=== PATIENT | male | born 1990 | race Caucasian/White ===

== ENCOUNTER 2018-10-01 16:48 | Inpatient (IN) | payer MEDICAID, OTHER ==
--- NOTE | 2018-10-01 17:30 | EDPHY ---
H & P Stated Complaint: SI Time Seen by Provider: 10/01/18 17:14 HPI/ROS: CHIEF COMPLAINT: Suicidal ideation HISTORY OF PRESENT ILLNESS: 27-year-old male with depression presents with suicidal ideation. Long history of depression, originally diagnosed as a teenager. Has never been treated for depression. Increasing thoughts of suicide, especially today. He was afraid to get in a car because he thought he might try to kill himself. He recently moved from the [place] to [place]. History of polysubstance abuse, last used oxycodone yesterday. No recent illness or injury. REVIEW OF SYSTEMS: complete 10 point ROS reviewed and is negative except for the noted elements in the HPI - Personal History Current Tetanus/Diphtheria Vaccine: Yes - Medical/Surgical History Hx Asthma: No Hx Chronic Respiratory Disease: No Hx Diabetes: No Hx Cardiac Disease: No Hx Renal Disease: No Hx Cirrhosis: No Hx Alcoholism: No Other PMH: Denies - Social History Smoking Status: Heavy smoker Alcohol Use: Occasionally - Physical Exam Exam: General Appearance: Alert, pleasant Eyes: Pupils equal and round, no conjunctival pallor ENT, Mouth: Mucous membranes moist Neck: Normal inspection Respiratory: Lungs are clear to auscultation Cardiovascular: Regular rate and rhythm Gastrointestinal: Abdomen is soft and nontender Neurological: A&O, nonfocal, normal gait Skin: Warm and dry, no rash Extremities: Normal inspection Psychiatric: Flat affect Constitutional: Initial Vital Signs Temperature (C) 36.8 C 10/01/18 16:50 Heart Rate 78 10/01/18 16:50 Respiratory Rate 18 10/01/18 16:50 Blood Pressure 151/94 H 10/01/18 16:50 O2 Sat (%) 97 10/01/18 16:50 O2 Delivery Mode Room Air Allergies/Adverse Reactions: No Known Allergies Allergy (Unverified 10/01/18 16:52) Home Medications: Medication Instructions Recorded NK [No Known Home Meds] 10/01/18 Medical Decision Making ED Course/Re-evaluation: This patient presents with suicidal ideation. I placed him on an M1 hold on arrival. Medically cleared for mental health evaluation. 10:00 p.m.-this patient has been sent by mental health and will be admitted to [facility]. EMTALA completed. The patient was calm and cooperative throughout his emergency department stay. No medications given. Differential Diagnosis: Differential diagnosis includes though it is not limited to suicidal ideation, overdose, acute psychosis, self-injury, alcohol withdrawal. - Data Points Laboratory Results: Laboratory Results 10/01/18 17:45 10/01/18 17:45 10/01/18 10/01/18 10/01/18 18:00 17:45 17:45 WBC 9.60 10^3/uL H 10^3/uL (3.80-9.50) RBC 4.91 10^6/uL 10^6/uL (4.40-6.38) Hgb 14.8 g/dL g/dL (13.7-17.5) Hct 42.2 % % (40.0-51.0) MCV 85.9 fL fL (81.5-99.8) MCH 30.1 pg pg (27.9-34.1) MCHC 35.1 g/dL g/dL (32.4-36.7) RDW 12.8 % % (11.5-15.2) Plt Count 248 10^3/uL 10^3/uL (150-400) MPV 11.3 fL fL (8.7-11.7) Neut % (Auto) 70.2 % % (39.3-74.2) Lymph % (Auto) 18.8 % % (15.0-45.0) Mcdowell % (Auto) 6.6 % % (4.5-13.0) Eos % (Auto) 3.3 % % (0.6-7.6) Baso % (Auto) 0.9 % % (0.3-1.7) Nucleat RBC Rel Count 0.0 % % (0.0-0.2) Absolute Neuts (auto) 6.74 10^3/uL H 10^3/uL (1.70-6.50) Absolute Lymphs (auto) 1.80 10^3/uL 10^3/uL (1.00-3.00) Absolute Monos (auto) 0.63 10^3/uL 10^3/uL (0.30-0.80) Absolute Eos (auto) 0.32 10^3/uL 10^3/uL (0.03-0.40) Absolute Basos (auto) 0.09 10^3/uL 10^3/uL (0.02-0.10) Absolute Nucleated RBC 0.00 10^3/uL 10^3/uL (0-0.01) Immature Gran % 0.2 % % (0.0-1.1) Immature Gran # 0.02 10^3/uL 10^3/uL (0.00-0.10) Sodium 139 mEq/L mEq/L (135-145) Potassium 4.1 mEq/L mEq/L (3.5-5.2) Chloride 105 mEq/L mEq/L (97-110) Carbon Dioxide 23 mEq/l mEq/l (22-31) Anion Gap 11 mEq/L mEq/L (6-14) BUN 16 mg/dL mg/dL (7-23) Creatinine 0.8 mg/dL mg/dL (0.7-1.3) Estimated GFR > 60 Glucose 86 mg/dL mg/dL (70-100) Calcium 9.5 mg/dL mg/dL (8.5-10.4) Urine Opiates Screen NEGATIVE (NEGATIVE) Urine Barbiturates NEGATIVE (NEGATIVE) Ur Phencyclidine Scrn NEGATIVE (NEGATIVE) Ur Amphetamine Screen NEGATIVE (NEGATIVE) U Benzodiazepines Scrn NEGATIVE (NEGATIVE) Urine Cocaine Screen NEGATIVE (NEGATIVE) U Marijuana (THC) Screen NEGATIVE (NEGATIVE) Ethyl Alcohol < 10 mg/dL mg/dL (0-10) Medications Given: Discontinued Medications Nicotine (Nicoderm Cq) 21 mg TD EDNOW ONE Stop: 10/01/18 17:49 Last Admin: 10/01/18 17:55 Dose: 21 mg Departure - Departure Disposition: [facility] IP Clinical Impression: Suicidal ideation Condition: Fair
[2018-10-01] MEDS ORDERED: NICOTINE 21 MG/24 HR PATCH TD ONE (17:48)
[2018-10-01 17:55] LABS: PLATELET COUNT 248 10^3/uL (150-400)
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
--- NOTE | 2018-10-01 21:35 | ASMTTCLDSP ---
TLC Discharge Disposition Disposition: Answers: Admit Disposition Notes: Notes: Major Depressive Disorder, recurrent, severe 296.33 (F33.2) In consultation with [facility] ED physician, Alecia Fuentes MD and on-call psychiatrist, Yohan Holcomb MD, both concurred that pt appears to meet 27-65 criteria requiring psychiatric hospitalization as pt appears to be at risk of harm to self/ due to a mental illness condition. Pt was read the Patient Rights and Responsibilities Statement on 21:25 the original placed on chart, and pt was given photocopy of Rights. Pt signed the Patient Rights. Pt was given the [facility] prohibited belongings list while in the ED. Was patient given the Answers: Yes Inpatient Behavioral Health Prohibited Belongings List while in the ED? For inpatient Yohan Holcomb MD admission, the following psychiatrist agreed to accept patient for admission to Behavioral Health ([facility]): Type of Hold: Answers: M1/72-hour Hold Hold initiated by: Answers: ED Physician Date Signed: 10/01/2018 09:34 PM Electronically Signed By:Bonifacio Schwartz
[2018-10-02] MEDS ORDERED: MAG HYDROX/AL HYDROX/SIMETH 30 ML UDCUP PO PRN (00:02)
[2018-10-02] MEDS ORDERED: ACETAMINOPHEN 325 MG TAB PO PRN (00:02)
[2018-10-02] MEDS ORDERED: MAGNESIUM HYDROXIDE 30 ML UDCUP PO PRN (00:02)
[2018-10-02] MEDS ORDERED: OLANZapine DISINTEGR 10 MG TAB PO PRN (00:02)
[2018-10-02] MEDS: NICOTINE POLACRILEX 2 MG GUM B PRN ×4 (00:17→20:50)
[2018-10-02] MEDS: LORazepam 0.5 MG TAB PO PRN ×2 (00:17→21:15)
--- NOTE | 2018-10-02 09:35 | PDMN ---
Medical Necessity Medical necessity: [facility] [place] [id number] Major Depressive Disorder, Adult: Inpatient Care, 3 days: 27 yo w/ major depressive disorder, recurrent, severe, on M1 hold for suicidal ideation. Admit IP status to BEH unit.
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
--- NOTE | 2018-10-02 14:38 | ASMTCMCOM ---
CM Note CM Note Notes: CC met with pt. to complete MTP. Pt. reports having "depression and fatigue" for the past ten years. Pt. reports "not trusting of anti-depressants", but stated he is willing to try them. Pt. reports he has "felt numb for a year". Pt. stated his lease in [place] is up soon and he plans to move to the [facility] in the next week or two. Pt. reports he has started a new job and they are aware he is currently in the hospital. Pt. reports he "just got Mediciad" adding he would like a PCP appointment and a dentist appointment (or referrals) along with follow up appointments with [facility]. Pt. denied any current legal issues. Pt. reports drinking alcohol "three to four times a month". Pt. reports currently using THC "every other month" adding he has recently decreased his THC use in the past two years. Pt. reports using MDMA "years ago", using meth twice stating it is "garbage" and using opiates "for energy or focus or mood inhancement". Pt. reports being careful not to mix substances and working to not develop a dependence to all substances. Pt. reports not liking benzos. Pt. reports this being his first hospitalization, adding he was hospitalized at age 19 and was diagnoses with ADHD. Pt. reports having a history of trauma and wanting a therapist who can help with him with his trauma. Pt. presents as alert, calm, good eye contact, groomed, polite, soft spoken, mumbling at times, and cooperative. Staff report pt. sleeping 5.5 hours and being medication compliant. Pt. signed an H[facility]TER for [facility] to send out referral today. Date Signed: 10/02/2018 02:38 PM Electronically Signed By:Khalida Recio
--- NOTE | 2018-10-02 15:40 | GCON ---
[f rep st] CONSULTATION DATE OF CONSULTATION: 10/02/2018 The patient is a pleasant 27-year-old gentleman who recently came to [place] from [facility], presents with suicidality. He has had suicidal thoughts in the past, but these were more persis tent and more intense so he sought care. It sounds like he has a history of depression. Regarding m edical history, he has very little. He has some concern about thyroid function. He has no fever, ch ills, cough, sputum, nausea, vomiting, diarrhea. He does have a history of 100-pound weight loss, it sounds like this is volitional. It sounds like he occasionally smokes cigarettes. Does not drink a lcohol. . No cough, sputum, nausea, vomiting, diarrhea, swelling in his joints, rash in t he skin. FAMILY HISTORY: Possible depression on his father's side. He has limited exposure to them. ALLERGIES: No known drug allergies. HOME MEDICATIONS: None. SOCIAL HISTORY: Does smoke cigarettes. Minimal alcohol and drugs. FAMILY HISTORY: As above. PHYSICAL EXAMINATION: VITAL SIGNS: Temp 36.9, blood pressure 126/84, pulse 70, breathing 16 times a minute, 98% on room air. GENERAL: No acute distress. HEENT: Sclerae anicteric. Oropharynx clear . Mucous membranes moist. NECK: Supple. No lymphadenopathy or JVD. LUNGS: Clear to auscultation bilaterally. HEART: S1, S2. ABDOMEN: Soft, nontender, nondistended. LOWER EXTREMITIES: No yu a. Calves are nontender. SKIN: Without rash. NEURO: Nonfocal. LABORATORY: Chem 7 is normal. Tox screen normal. White count 9.6, slightly high. Otherwise, CBC i s normal. ASSESSMENT/PLAN: 27-year-old gentleman with suicidality. 1. Suicidality management per inpatient psych. 2. Concern for thyroid function. We will check a TSH. I will follow up on this result. 3. Weight loss. It sounds like it was volitional. 4. Smoking. He wants a nicotine patch. DISPOSITION: Per Behavioral Health. /[id number]/MODL
[2018-10-02] MEDS ORDERED: NICOTINE 21 MG/24 HR PATCH TD ONE (16:00)
[2018-10-02] MEDS ORDERED: NICOTINE 21 MG/24 HR PATCH TD SCH (16:03)
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
[2018-10-02] MEDS: NICOTINE 21 MG/24 HR PATCH TD SCH (17:48)
[2018-10-03] MEDS ORDERED: OLANZapine DISINTEGR 5 MG TAB PO PRN (08:30)
[2018-10-03] MEDS ORDERED: NICOTINE 21 MG/24 HR PATCH TD SCH (09:00)
--- NOTE | 2018-10-03 09:05 | SOAPPROG ---
SOAP Progress Note Assessment/Plan: Assessment: Major Depressive Disorder, Severe. Improvement noted. (see subjective/ objective note). Patient could benefit from continued inpatient hospitalization for crisis stabilization, safety, and medication evaluation. Consider discharge tomorrow. Plan: 1. Medications: Discontinue Zyprexa and Ativan as not indicated. Patient agrees to Prozac 20 mg po QD. 2. Review with patient informed consent and recommendations for psychotropic medication treatment listed below 3. Labs: A1c, liver function, and lipid panel 4. Therapy: continue milieu and group therapy 5. Further investigation including gathering information from patients relatives and review of past case records to inform treatment plan. 6. Safety/Wellness plan and follow-up outpatient appointments to be established prior to discharge. Next steps are for patient to meet with patient care director to plan a safe discharge plan and establish outpatient services for ongoing treatment. 7. Confer with inpatient treatment team regarding treatment plan. 8. Psychosocial stressors addressed through disease case manager. 9. Legal status: M1 10. Consider discharge Wednesday (tomorrow) patient is in stable condition, safe, and has a safe discharge plan. PSYCHOTROPIC MEDICATION TREATMENT INFORMED CONSENT and RECOMMENDATIONS: Review nature of condition, diagnosis, and prognosis. Review nature and purpose of psychotropic medication treatment. Review type of psychotropic medications being ordered. Review risk and benefits of psychotropic medication treatment. Review probable length of time patient will need to take medications. Review risk and benefits of not undergoing psychotropic medication treatment. Review alternative treatments to psychotropic medications. Review psychotropic medications contraindications, drug-drug interactions, side effects, and importance of reporting any side effects to a psychiatric provider or nurse during inpatient hospitalization, and upon discharge to patients psychiatric outpatient provider, primary care provider, or other health career services assistant. Review importance of asking a nurse, psychiatric provider, or primary care provider any questions or problems concerning the psychotropic medications. Verify patient understands the information that has been provided, and understands, accepts, and agrees to psychotropic medications. Review patients safety plan and importance of patient to report to staff while hospitalized if patient is ever a danger to self/others, or unable to care for self, and upon discharge, the importance for patient to contact [facility] or 1, or go to the nearest emergency room, if patient is ever a danger to self/others, or unable to care for self. Recommend that upon discharge patient establish medication management treatment with a psychiatric provider, establishes routine therapy appointments, and follow-up with primary care provider. Verify patient understands and agrees to these recommendations. 10/03/18 09:03 Subjective: Following up with patient for evaluation of mood and safety. Patient reports, "Doing okay. Just woke up. Is breakfast still being served?" Patient agrees to Prozac 20 mg po QD. Objective: Vital Signs Temp Pulse Resp BP Pulse Ox 36.4 C 72 15 110/62 98 10/03/18 06:00 10/03/18 06:00 10/03/18 06:00 10/03/18 06:00 10/03/18 06:00 MSE: The patient presents casually dressed and with good hygiene, and looks stated age. Patient is sitting, posture is upright, and position is relaxed. Patient appears awake, alert, and responds appropriately and reasonably during interview. Patient is engaged, relates well to interviewer, and emotional facial expression is appropriate to situation and changes appropriately with topic. Patient is cooperative, makes comfortable eye contact, and movements are voluntary, deliberate, coordinated, and smooth and even with no inappropriate movements. Patient makes laryngeal sounds effortlessly and shares conversation appropriately; pace of conversation is appropriate, and stream of talking is fluent; articulation is clear and understandable; word choice is effortless and appropriate for education level; completes sentences, occasionally pausing to think; rate and volume are appropriate for interview and setting. Patient reports mood as euthymic. Patients affect is stable with full variable range, congruent with mood, and appropriate to speech and circumstances. Patient has linear and logical thinking, with no loose associations, tangential thought, thought blocking, concrete thinking, or any other signs of formal thought disorder. Patient denies suicidal and homicidal ideation, and denies hallucinations and delusions. Patient appears to be a reliable historian with sound judgement and good insight into current condition. Patient has no apparent dysfunction in recent or remote memory noted , and no evidence of gross cognitive dysfunction noted at any point during the interview. - Time Spent With Patient Time Spent With Patient: 15 minutes, met with patient individually. - Pending Discharge Pending Discharge Within 24 Hours: No Pending Discharge Within 48 Hours: No ICD10 Worksheet Patient Problems: Problems Problem Status Onset Nicotine dependence Acute Major depressive disorder, severe Chronic
[2018-10-03] MEDS: NICOTINE 21 MG/24 HR PATCH TD SCH (09:11)
[2018-10-03] MEDS: FLUoxetine 20 MG CAP PO SCH (09:11)
[2018-10-03] MEDS: NICOTINE POLACRILEX 2 MG GUM B PRN ×2 (13:02→17:39)
--- NOTE | 2018-10-03 14:00 | ASMTBHDC ---
Notes Note: Notes: CC coordinated the following outpatient appointments: [facility] [address] [place], [address] O# [phone] Next apppointment with Lakeisha on October 05 @ 14:30; check in @ 14:15. This is for the initial 30 minute appointment to do paperwork and CT should bring ID, insurance card, etc. [facility] [address] [place] [address] Next appointment on October 06 @ 11:30 with Cindy Hernandez NP. Please arrive at 11:10 for check-in. Please bring ID, medical records/discharge paperwork, insurance card, prescription medications in the original containers, etc. Date Signed: 10/03/2018 01:59 PM Electronically Signed By:Amanda Mesa
[2018-10-04 06:20] VITALS: BP 99/57
[2018-10-04] MEDS: FLUoxetine 20 MG CAP PO SCH (09:19)
[2018-10-04] MEDS: NICOTINE 21 MG/24 HR PATCH TD SCH (09:19)
[2018-10-04] MEDS: NICOTINE POLACRILEX 2 MG GUM B PRN ×2 (09:19→13:17)
--- NOTE | 2018-10-04 13:17 | BDS ---
[f rep st] BEHAVIORAL HEALTH DISCHARGE SUMMARY REASON FOR ADMISSION: From the ED note dated 10/01/2018, patient presented with depression and suicidal ideation. The patient reported a long history of depression, originally diagnosed as a teenager. The patient reported he has, however, never been treated for depression. The patient reported increasing thoughts of suicide, especially day of presenting to the emergency room. The patient was admitted involuntarily and on an M1 hold due to being a danger to himself. Patient was admitted for safety, crisis stabilization, and medication management. ADMITTING DIAGNOSES: 1. Major depressive disorder, severe. 2. Nicotine dependence. ADMISSION PHYSICAL EXAM: Patient was seen on 10/02/2018, for history and physical consultation for medical clearance for inpatient psychiatric hospitalization and treatment. The patient was medically cleared for inpatient psychiatric hospitalization and treatment. For further details, please refer to the consultation document dated 10/02/2018. ADMISSION LABS: 1. CBC within normal limits except white blood cells were elevated at 9.60, absolute neutrophils were elevated at 6.74. 2. BMP within normal limits. 3. Hemoglobin A1c within normal limits at 4.9. 4. Liver function within normal limits. 5. Lipid panel within normal limits, except cholesterol was low at 139, non- HDL cholesterol was low at 85. 6. TSH within normal limits at 0.469. 7. Toxicology screen was negative for all the substances that were screened and negative for ethyl alcohol. MAJOR PROCEDURES OR TESTS: None. HOSPITAL COURSE: The most prominent symptoms and behaviors while the patient was here were reports of severe depression. Treatment modalities utilized were milieu and group therapy. Prozac 20 mg p.o. daily was started to target mood symptoms, was tolerated with no report of side effects. Patient has improved considerably with no signs of psychiatric symptoms and no psychiatric symptoms expressed. Patient reports he has improved since admission, states to be in stable condition, feels safe to discharge, and he contracts for safety. Patients response to treatment was good. There were no adverse or unexpected results of treatment. The patient was safe throughout stay, active in treatment , engaged in groups, and was appropriate with staff. Patient met with treatment team prior to discharge to assess readiness to discharge and review discharge plan. The treatment team consensus is the patient in stable condition , has a safe discharge plan, and is ready to discharge today. CONDITION AT DISCHARGE: Patient is in stable condition and is no longer a danger to self or others, and is not gravely disabled due to mental illness. Patient is no longer in need of inpatient level of care, and can be safely and effectively treated within the community. The patients level of risk at time of discharge is low. MSE: The patient is casually dressed and with good hygiene , and looks stated age. Patient is sitting, posture is upright, and position is relaxed. Patient appears awake, alert, and responds appropriately and reasonably during interview. Patient is engaged, relates well to interviewer, and emotional facial expression is appropriate to situation and changes appropriately with topic. Patient is cooperative, makes comfortable eye contact , and movements are voluntary, deliberate, coordinated, and smooth and even with no inappropriate movements. Patient makes laryngeal sounds effortlessly and shares conversation appropriately; pace of conversation is appropriate, and stream of talking is fluent; articulation is clear and understandable; word choice is effortless and appropriate for education level; completes sentences, occasionally pausing to think; rate and volume are appropriate for interview and setting. Patient reports mood as euthymic. Patients affect is stable with full variable range, congruent with mood, and appropriate to speech and circumstances. Patient has linear and logical thinking, with no loose associations, tangential thought, thought blocking, concrete thinking, or any other signs of formal thought disorder. Patient denies suicidal and homicidal ideation, and denies hallucinations and delusions. Patient appears to be a reliable historian with sound judgement and good insight into current condition. Patient has no apparent dysfunction in recent or remote memory noted , and no evidence of gross cognitive dysfunction noted at any point during the interview. DISCHARGE DIAGNOSES: 1. Major depressive disorder, severe. 2. Nicotine dependence. CURRENT MEDICATIONS: After reviewing options, risks and benefits with the patient, the patient agrees to continue: 1. Prozac 20 mg p.o. daily. 2. Nicotine patch. The patient requests prescriptions for these medication at time of discharge. Prescriptions for 30 days is provided. The prescriptions are reviewed with the patient at time of discharge to ensure accuracy and patient understanding. DISPOSITION: Patient left the hospital independently and voluntarily, and plans to return to his home in [place], [place]. FOLLOWUP: implant coordinator reports the appropriate outpatient follow-up services have been established and outpatient appointments have been scheduled. The patient received written instructions with times and dates of outpatient follow-up appointments. The following follow-up recommendations were provided to the patient at discharge: Continue psychotropic medications as prescribed and attend appointments as scheduled. Report any side effects to a psychiatric outpatient provider, a primary care provider, or other health field care coordinator. Address any questions or problems concerning the psychotropic medications with a psychiatric outpatient provider, a primary care provider, or other health field care coordinator. Contact [facility] or [facility], or go to the nearest emergency room, if you are ever a danger to yourself/others, or unable to care for yourself. As soon as possible, establish a routine medication management treatment with a psychiatric provider, establish routine therapy appointments, and follow-up with a primary care provider. SUBSTANCE ABUSE BRIEF INTERVENTION: Brief intervention regarding the risks of nicotine abuse is provided to patient with goal to reduce the risk of harm that could result from the continued use of nicotine, with the general aim to investigate the problem, raise awareness of problem, develop a solution with the patient, recommend a specific change or activity, and motivate the patient toward change. Assess substance abuse behavior and give supportive advice about harm reduction, recommend a reduction in hazardous/at-risk consumption patterns, and facilitate referrals for additional specialized treatment with rn wound care. Intermediate goal is for the patient to quit and continue withdrawal/nicotine replacement treatment. Intervention focus on intermediate goals to allow for more immediate success in the treatment process to keep the patient motivated. Review following with patient: Nicotine dependence: lung cancer, other cancers, heart and circulatory system problems, diabetes, eye problems, infertility and impotence, more prone to respiratory infections, weakened senses, teeth and gum disease, premature aging, second hand smoke. Withdrawal symptoms include strong cravings, anxiety, irritability, restlessness , difficulty concentrating, depressed mood, frustration, anger, increased hunger , insomnia, and constipation or diarrhea. OUTPATIENT SUBSTANCE ABUSE TREATMENT: Patient referred to outpatient provider and treatment for continued treatment related to substance abuse. LEGAL COURSE: The patient was admitted on an M1 hold for involuntary inpatient psychiatric hospitalization. Patient discharged today independently and voluntarily. ATTITUDE AT TIME OF DISCHARGE: The patients attitude was positive at time of discharge, and patient reports looking forward to discharging today. The patient reports he feels safe to discharge, is no longer a danger to himself or others, is in stable condition, and contracts for safety. Patient states he will continue medications as prescribed, and establish medication management treatment with an outpatient provider after discharge. Patient reports he understands the information that has been provided to him, and he understands, accepts, and agrees to psychotropic medications. Patient describes internal protective factors as the coping skills he has learned while hospitalized here, and he plans to continue to practice these coping skills after discharge. LABS AND STUDIES: There were no pending labs or studies at time of discharge. ADVANCED DIRECTIVES: There were no advance directives on file, and patient was full code during this hospitalization. The following psychotropic medication treatment informed consent and recommendations were provided to the patient at time of discharge. Patient reports he understands, accepts, and agrees to the information that has been provided. PSYCHOTROPIC MEDICATION TREATMENT INFORMED CONSENT and RECOMMENDATIONS: Review nature of condition, diagnosis, and prognosis. Review nature and purpose of psychotropic medication treatment. Review type of psychotropic medications being prescribed. Review risk and benefits of psychotropic medication treatment. Review probable length of time will need to take medications. Review risk and benefits of not undergoing psychotropic medication treatment. Review alternative treatments to psychotropic medications. Review psychotropic medications contraindications, side effects, and importance of reporting any side effects to a psychiatric provider, primary care provider, or other health field care coordinator. Review importance of asking a psychiatric provider or primary care provider any questions or problems concerning the psychotropic medications. Review safety plan and the importance to contact [facility] or [facility] , or go to the nearest emergency room, if ever a danger to yourself/others, or unable to care for yourself. Recommend upon discharge to establish routine medication management treatment with a psychiatric provider, establish routine therapy appointments, and follow-up with a primary care provider. Verify patient understands, accepts, and agrees to the information that has been provided. /[id number]/MODL MTDD
--- NOTE | 2018-10-04 14:31 | ASMTBHDC ---
Notes Note: Notes: The patient participated in clinical treatment team rounds; he was engaged and appropriate. The patient discussed his mother's declining health, the health care system, reviewed his discharge plan, and was provided medication education. Date Signed: 10/04/2018 02:29 PM Electronically Signed By:Amanad Mesa
== END 2018-10-04 15:10 | disposition home or self-care (01) | DRG 885 ==
LOC: EEVIPCON 16:48 → BBEH 23:28
PROVIDERS: ADMIT Psychiatry & Neurology Psychiatry; ATTEND Psychiatry & Neurology Psychiatry
DX: F33.3 Major depressive disorder, recurrent, severe with psychotic symptoms (principal); F17.200 Nicotine dependence, unspecified, uncomplicated
CPT/HCPCS: 80305; G0480